=== PATIENT | male | born 1960 | race Two or more races ===

== ENCOUNTER 2023-02-09 09:56 | Emergency (ER) | payer OTHER ==
[~2023-02-09] VITALS: Ht 167.6 cm; Wt 72.6 kg
[2023-02-09] MEDS ORDERED: ZESTRIL20 MG (10:14)
[2023-02-09] MEDS ORDERED: VAZALORE81 MG (10:14)
== END 2023-02-09 13:17 | disposition home or self-care (01) ==
LOC: ER 09:56
DX: R55 Syncope and collapse (principal); I95.9 Hypotension, unspecified